=== PATIENT | female | born 1980 | race Caucasian/White ===

== ENCOUNTER → 2016-07-09 | Outpatient (CLI) | payer OTHER ==
[2016-07-09 14:06] LABS: HEMOGLOBIN 13.2 gm/dl (12.3-15.3); RED BLOOD COUNT 4.58 M/UL (4.00-5.10); WHITE BLOOD COUNT 6.6 K/UL (4.5-11.0)
== END ==
LOC: LAB 12:40
PROVIDERS: Nurse Practitioner Family
DX: Z91.013 Allergy to seafood (principal); Z91.018 Allergy to other foods
CPT/HCPCS: 36415; 82306; 82607; 82785; 84443; 85025; 86003

== ENCOUNTER 2020-05-21 14:13 | Emergency (ER) | payer OTHER ==
[~2020-05-21 14:13] MED LIST: 24HR ALLERGY REL5 MG PO; ALLERGY SHOTS; BREO ELLIPTA 11 EACH INH; CETIRIZINE HCL10 MG PO; DULERA 200 MCG8.8 GM INH; ETODOLAC500 MG PO; FLONASE 0.05% N16 GM; LAMISIL TAB 25250 MG PO; NEXIUM10 MG PO; NORCO 5-325 TA1 EACH PO; VITAMIN D250000 UNIT PO
[2020-05-21 15:01] LABS: HEMOGLOBIN 14.2 gm/dl (12.3-15.3); RED BLOOD COUNT 4.73 M/UL (4.00-5.10); WHITE BLOOD COUNT 5.5 K/UL (4.5-11.0)
[2020-05-21 15:20] LABS: BUN/CREATININE RATIO 24 (0-10)
[2020-05-21] MEDS ORDERED: BENTYL 20MG TAB20 MG PO (19:02)
[2020-05-21] MEDS ORDERED: ZOFRAN ODT 4 MG4 MG PO (19:02)
[2020-05-21] MEDS ORDERED: LODINE CAP 300300 MG PO (19:02)
== END 2020-05-21 19:15 | disposition home or self-care (01) ==
LOC: ER1 14:13
PROVIDERS: Physician Assistant
DX: R10.813 Right lower quadrant abdominal tenderness (principal); R11.2 Nausea with vomiting, unspecified; J45.909 Unspecified asthma, uncomplicated; Z91.041 Radiographic dye allergy status; Z90.49 Acquired absence of other specified parts of digestive tract; Z88.5 Allergy status to narcotic agent
CPT/HCPCS: 80053; 81001; 84703; 85025; 96374; 96375; 99284; J1885; J2405

== ENCOUNTER → 2020-06-22 | Outpatient (CLI) | payer OTHER ==
[~2020-06-22] MED LIST changes: +BENTYL 20MG TAB20 MG PO; +LODINE CAP 300300 MG PO; +ZOFRAN ODT 4 MG4 MG PO
== END ==
LOC: LAB 12:23
DX: R21 Rash and other nonspecific skin eruption (principal); Z91.018 Allergy to other foods
CPT/HCPCS: 36415; 83655

== ENCOUNTER 2020-09-23 19:22 | Emergency (ER) | payer OTHER ==
[2020-09-23 20:52] LABS: HEMOGLOBIN 14.4 gm/dl (12.3-15.3); RED BLOOD COUNT 4.91 M/UL (4.00-5.10); WHITE BLOOD COUNT 10.1 K/UL (4.5-11.0)
[2020-09-23 21:11] LABS: BUN/CREATININE RATIO 11 (0-10)
[2020-09-23] MEDS ORDERED: PEPCID20 MG PO (23:36)
[2020-09-23] MEDS ORDERED: ZOFRAN ODT 4 MG4 MG SL (23:36)
== END 2020-09-23 23:43 | disposition home or self-care (01) ==
LOC: ER1 19:22
PROVIDERS: Physician Assistant
DX: R10.32 Left lower quadrant pain (principal)
CPT/HCPCS: 76830; 80053; 81001; 83605; 83690; 84703; 85025; 87086; 99284

== ENCOUNTER 2021-02-01 16:22 | Emergency (ER) | payer OTHER ==
[~2021-02-01 16:22] MED LIST changes: +PEPCID20 MG PO; +ZOFRAN ODT 4 MG4 MG SL
[2021-02-01 18:34] LABS: HEMOGLOBIN 14.4 gm/dl (12.3-15.3); RED BLOOD COUNT 4.88 M/UL (4.00-5.10); WHITE BLOOD COUNT 5.9 K/UL (4.5-11.0)
[2021-02-01 19:12] LABS: BUN/CREATININE RATIO 25 (0-10)
== END 2021-02-01 20:15 | disposition home or self-care (01) ==
LOC: ER1 16:22
PROVIDERS: Family Medicine
DX: R07.89 Other chest pain (principal); R20.2 Paresthesia of skin; R11.0 Nausea; Z20.822 Contact with and (suspected) exposure to COVID-19; Z91.041 Radiographic dye allergy status
CPT/HCPCS: 71045; 80053; 81001; 82550; 82553; 83690; 83874; 84439; 84443; 84484; 84703; 85025; 93005; 99285; U0002

== ENCOUNTER → 2021-03-15 | Outpatient (CLI) | payer OTHER | LOC: MAMO 03-06 11:00 | DX: Z12.31 Encounter for screening mammogram for malignant neoplasm of breast (principal) | CPT/HCPCS: 77063; 77067 ==

== ENCOUNTER → 2021-03-22 | Day surgery (SDC) | payer OTHER ==
[~2021-03-22] MED LIST changes: +ALDACTONE25 MG PO; +ALLERGY RELIEF5 MG PO; +VITAMIN C500 M4 PO; +VITAMIN D 40400 UNIT GT
== END | disposition home or self-care (01) ==
LOC: OR 07:18
DX: K21.00 Gastro-esophageal reflux disease with esophagitis, without bleeding (principal); K31.7 Polyp of stomach and duodenum; K29.50 Unspecified chronic gastritis without bleeding; K31.A0 Gastric intestinal metaplasia, unspecified; J45.909 Unspecified asthma, uncomplicated; I10 Essential (primary) hypertension; Z88.5 Allergy status to narcotic agent; Z88.0 Allergy status to penicillin; Z91.041 Radiographic dye allergy status; Z79.899 Other long term (current) drug therapy; Z20.822 Contact with and (suspected) exposure to COVID-19
CPT/HCPCS: J2704; J3010; J7040